=== PATIENT | male | born 1960 | race Caucasian/White ===

== ENCOUNTER 2017-07-05 07:37 | Emergency (ER) | payer OTHER ==
--- NOTE | 2017-07-05 08:19 | ED ---
Extremity Problem HPI - General Chief complaint: Extremity Problem,Nontraumatic Stated complaint: multiple pain complaints Time Seen by Provider: 07/05/17 08:06 Source: patient, RN notes reviewed Mode of arrival: ambulatory Limitations: physical limitation - History of Present Illness Initial comments: This a 56-year-old male presents emergency Department with multiple extremity problems. Patient complaining of right shoulder pain 2 months. Patient states started after he was working on his truck rolled over on a rock. Patient at bedtime swelling on his right scapular region. He states he has pain when he moves his right shoulder though he does have some chronic issues of his right arm. He states that he has multiple ganglion cyst noted to his right wrist region and carpal tunnel. 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 Patient also complains of right hip pain and swelling states that there is a large mass or lump in his right hip region. He states that he initially thought this was from his seatbelt rubbing on his leg but states that it's now affecting his hip movement. Patient states he cannot tolerate the pain anymore he states it's affecting his work. Patient denies any lower shunted paresthesias. Denies any back pain her usual. There is a ball playing tennis retention. - Related Data Home Medications Medication Instructions Recorded Confirmed Acetaminophen/Diphenhydramine 1 tab PO Q4HR PRN 07/05/17 07/05/17 [Tylenol PM 500-25mg] Aspirin 325 mg PO DAILY PRN 07/05/17 07/05/17 Previous Rx's Medication Instructions Recorded Acetaminophen-Codeine 300-30mg 1 tab PO Q4H PRN #20 tablet 07/05/17 [Tylenol #3] Allergies Allergy/AdvReac Type Severity Reaction Status Date / Time No Known Allergies Allergy Verified 07/05/17 08:55 Review of Systems ROS Statement: Those systems with pertinent positive or pertinent negative responses have been documented in the HPI. ROS Other: All systems not noted in ROS Statement are negative. Past Medical History Past Medical History: No Reported History History of Any Multi-Drug Resistant Organisms: None Reported Past Surgical History: No Surgical Hx Reported Past Psychological History: No Psychological Hx Reported Smoking Status: Current every day smoker Past Alcohol Use History: Occasional Past Drug Use History: None Reported General Exam Limitations: physical limitation General appearance: alert, in no apparent distress Neck exam: Present: normal inspection, full ROM. Absent: tenderness, meningismus, lymphadenopathy Respiratory exam: Present: normal lung sounds bilaterally. Absent: respiratory distress, wheezes, rales, rhonchi, stridor Cardiovascular Exam: Present: regular rate, normal rhythm, normal heart sounds. Absent: systolic murmur, diastolic murmur, rubs, gallop, clicks Extremities exam: Present: other (Right scapular region there is an area of swelling approximately 3 cm x 3 cm that is tender to palpation feels to be slightly mobile patient has remained good range of motion of his right shoulder but he does complain of mild discomfort. Patient has multiple ganglion cyst noted to the right wrist pain with a rate wrist movement patient's strength of upper extremities are equal 5/5 neurovascular intact, right hip region there is an area of swelling proximal 5 cm x 5 cm there is tender patient does have good range of motion of the right hip with full range of motion and neurovascular intact lower extremity there is no back tenderness) Neurological exam: Present: alert, oriented X3, CN II-XII intact, reflexes normal. Absent: motor sensory deficit Skin exam: Present: warm, dry, intact, normal color. Absent: rash Course Vital Signs 07/05/17 07:40 Temperature 97.1 F L Pulse Rate 84 Respiratory 20 Rate Blood Pressure 170/73 O2 Sat by Pulse 98 Oximetry Medical Decision Making - Medical Decision Making 56-year-old male presents for multiple complaints. Patient has a mass in his right groin region. They did take a be possibly hematoma though this has been present for 3 months. This most likely is to be hematoma. Patient will follow on-call surgeon and primary care physician. Patient will need further workup we discussed possible cancerous masses. Patient also has a cystic lesion on his right shoulder. Patient we given pain medication to help for the next few days to help this pain and he'll follow up with outpatient. Disposition Clinical Impression: Right groin mass, Right shoulder pain, Mass of shoulder region Disposition: HOME SELF-CARE Condition: Stable Instructions: Soft Tissue Mass (ED) Additional Instructions: Follow-up with PCP and surgeon as directed.Please return to the Emergency Department if symptoms worsen or any other concerns. Prescriptions: Acetaminophen-Codeine 300-30mg [Tylenol #3] 1 tab PO Q4H PRN #20 tablet PRN Reason: pain Referrals: Macho Fernandez MD [STAFF PHYSICIAN] - 1-2 days Sandy Doe MD [REFERRING] - 1-2 days Time of Disposition: 09:56
--- NOTE | 2017-07-05 08:57 | XR ---
EXAMINATION TYPE: XR shoulder complete RT DATE OF EXAM: 07/05/2017 COMPARISON: NONE HISTORY: Pain TECHNIQUE: Shoulder examined in 3 views FINDINGS: The humeral head articulates with the glenoid. The acromio-clavicular junction is normal. No acute fractures or dislocations are evident. A follow up study can be performed 7-10 days from acute trauma for continued pain. IMPRESSION: 1. Normal Shoulder
--- NOTE | 2017-07-05 08:58 | XR ---
EXAMINATION TYPE: XR Hip RT and AP Pelvis DATE OF EXAM: 07/05/2017 COMPARISON: NONE HISTORY: Pain right hip TECHNIQUE: AP pelvis and 2 views right hip FINDINGS: No acute displaced fractures are evident. Symphysis pubis and sacroiliac joints are normal. Vascular calcifications present. Nonspecific bowel gas is present. Right Femoral head articulates with the acetabulum. No acute fractures are evident. Joint spaces pres erved. IMPRESSION: 1. Normal right hip and AP pelvis
--- NOTE | 2017-07-05 09:33 | US ---
EXAMINATION TYPE: US groin extremity RT DATE OF EXAM: 07/05/2017 COMPARISON: NONE CLINICAL HISTORY: mass/pain. Patient complains of tender mass in right upper thigh, very anteriorly x 3 months. Patient states same tender mass is felt in right posterior shoulder. Complex mass found at area of lump = 5.8 x5.4 x 3.7cm. Cystic portion = 3.9 x 5.1 x 3.3 cm, solid por tion = 2.2 x 4.6 x 2.9 cm. Vascularity is seen within cystic and solid portion. Mass is lateral and anterior to Common Femoral V ein/Artery. IMPRESSION: 1. Complex collection upper thigh. Correlate for hematoma. Internal vascularity is evident. Underlyin g mass could be considered. Additional workup recommended.
[2017-07-05 10:01] VITALS: BP 145/87; PULSE 87; RESP 17; TEMP 98.7
== END 2017-07-05 10:01 | disposition home or self-care (01) ==
LOC: EC 07:37
DX: R19.03 Right lower quadrant abdominal swelling, mass and lump (principal); R22.31 Localized swelling, mass and lump, right upper limb; M25.511 Pain in right shoulder; R22.41 Localized swelling, mass and lump, right lower limb; M67.431 Ganglion, right wrist; F17.200 Nicotine dependence, unspecified, uncomplicated
CPT/HCPCS: 73502; 99284

== ENCOUNTER → 2017-08-15 | Outpatient (CLI) | payer OTHER ==
--- NOTE | 2017-08-15 09:21 | XR ---
EXAMINATION TYPE: XR chest 2V DATE OF EXAM: 08/15/2017 COMPARISON: NONE HISTORY: Chest pain TECHNIQUE: Frontal and lateral views of the chest are obtained. FINDINGS: There is no focal air space opacity, pleural effusion, or pneumothorax seen. Pulmonary hyp erinflation and mild flattening of the diaphragms on the lateral image suggests component of underlyi ng COPD. The cardiac silhouette size is within normal limits. The osseous structures are intact. Mi nimal degenerative changes of the thoracic spine are noted. IMPRESSION: 1. No acute cardiopulmonary process. 2. Pulmonary hyperinflation suggesting a degree of underlying COPD.
[2017-08-15 09:24] LABS: CH 32.5; HCT 45.3 % (39.0-53.0); HDW 2.72; HGB 15.1 gm/dL (13.0-17.5); MCH 31.9 pg (25.0-35.0); MCHC 33.3 g/dL (31.0-37.0); MCV 95.8 fL (80.0-100.0); RBC 4.73 m/uL (4.30-5.90); RDW 12.3 % (11.5-15.5)
[2017-08-15 09:34] LABS: Appearance,Urine Clear (Clear); Bilirubin,Urine Negative (Negative); Glucose,Urine (UA) Negative (Negative); Ketones,Urine Negative (Negative); Leukocyte Esterase,Urine Negative (Negative); Nitrite,Urine Negative (Negative); Protein,Urine Negative (Negative); Specific Gravity,Urine 1.017 (1.001-1.035); UA Billing (MACRO vs. MICRO) CHEM
[2017-08-15 10:00] LABS: ALT 30 U/L (21-72); AST 17 U/L (17-59); Alkaline Phosphatase 127 U/L (38-126); Anion Gap 13 mmol/L; Blood Urea Nitrogen 6 mg/dL (9-20); Calcium 9.7 mg/dL (8.4-10.2); Carbon Dioxide 26 mmol/L (22-30); Chloride 100 mmol/L (98-107); Cholesterol 191 mg/dL (<200); Glucose 120 mg/dL (74-99); HDL Cholesterol 33 mg/dL (40-60); Non-African American GFR(MDRD) >60 (>60 ml/min/1.73 sqM); Potassium 4.8 mmol/L (3.5-5.1); Sodium 139 mmol/L (137-145); Total Bilirubin 0.3 mg/dL (0.2-1.3); Total Protein 6.9 g/dL (6.3-8.2)
[2017-08-15 10:28] LABS: Prostate Specific Antigen 0.42 ng/mL (0.00-4.00)
--- NOTE | 2017-08-15 12:16 | XR ---
EXAMINATION TYPE: XR shoulder complete LT DATE OF EXAM: 08/15/2017 CLINICAL HISTORY: Left shoulder lump TECHNIQUE: Three views of the left shoulder are obtained. COMPARISON: None. FINDINGS: There is no acute fracture/dislocation evident in the left shoulder. However there is ar w ell-corticated 6.4 mm osseous fragment in the acromio clavicular joint space that may represent seque la of acromioclavicular arthropathy or prior fracture. No localized soft tissue swelling is seen alth ough soft tissue deformity/protrusion is seen over the acromio clavicular joint. Moderate acromioclav icular arthropathy is demonstrated as marginal osteophytes. The visualized ribs are intact and unrema rkable. IMPRESSION: 1. There is no acute fracture or dislocation in the left shoulder. 2. Osseous fragment within the left acromio clavicular joint may relate to moderate osteoarthropathy versus old well-corticated fracture fragment.
--- NOTE | 2017-08-15 12:18 | XR ---
EXAMINATION TYPE: XR Hip Complete RT DATE OF EXAM: 08/15/2017 CLINICAL HISTORY: Right hip pain TECHNIQUE: AP and frogleg views of the right hip are obtained. COMPARISON: 07/05/2017 FINDINGS: There is no acute fracture/dislocation evident in the right hip. The joint space in the r ight hip appears within normal limits. The overlying soft tissue appears unremarkable. Mild right fe moral acetabular osteoarthropathy is displayed as acetabular sclerosis and minimal joint space narrow ing. Calcific atheromatous changes are present in seen of the right internal iliac artery and its bra nches. Contrast is present within the urinary bladder from the recent CT. Protrusion at the right fem oral head neck junction on the frog leg view relates to a small CAM type deformity which may predispo se the patient to internal impingement. IMPRESSION: 1. There is no acute fracture or dislocation in the right hip. 2. Mild right femoral acetabular osteoarthropathy. 3. Small cam deformity of the femoral head neck junction that may predispose the patient to internal impingement.
== END | disposition home or self-care (01) ==
LOC: LABWHC1 08:10
PROVIDERS: ATTEND Internal Medicine
DX: Z00.00 Encounter for general adult medical examination without abnormal findings (principal); M16.11 Unilateral primary osteoarthritis, right hip; R93.7 Abnormal findings on diagnostic imaging of other parts of musculoskeletal system; J98.4 Other disorders of lung; E78.2 Mixed hyperlipidemia; N40.0 Benign prostatic hyperplasia without lower urinary tract symptoms; K21.0 Gastro-esophageal reflux disease with esophagitis; I11.9 Hypertensive heart disease without heart failure
CPT/HCPCS: 36415; 71020; 73502; 80053; 80061; 81003; 82272; 84153; 84439; 84443; 85027